=== PATIENT | male | born 1950 | race African-American/Black ===

== ENCOUNTER 2018-02-23 08:40 | Observation (INO) ==
[2018-02-23] MEDS ORDERED: Morphine Inj 4 MG/ML Vial IV.PUSH ONE ×3 (08:49→13:58)
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
[2018-02-23 09:14] LABS: Baso % (Auto) 1.1 % (0.0-2.0); Eos # (Auto) 0.2 th/mm3 (0.0-0.4); Hematocrit 39.1 % (39.0-51.0); Hemoglobin 13.3 gm/dL (13.0-17.0); Lymph # (Auto) 0.9 th/mm3 (1.0-4.8); Mean Corpuscular Hemoglobin 32.1 pg (27.0-34.0); Mean Corpuscular Volume 94.5 fL (80.0-100.0); Mean Platelet Volume 9.2 fL (7.0-11.0); Mono # (Auto) 0.5 th/mm3 (0.0-0.9); Mono % (Auto) 10.4 % (0.0-8.0); Neut # (Auto) 2.9 th/mm3 (1.8-7.7); Neut % (Auto) 63.5 % (16.0-70.0); Platelet Count 184 th/mm3 (150-450); Red Blood Count 4.13 mil/mm3 (4.50-5.90); Red Cell Distribution Width 14.8 % (11.6-17.2); White Blood Count 4.6 th/mm3 (4.0-11.0)
[2018-02-23 09:23] LABS: Activated Partial Thrombo Time 28.2 sec (23.4-31.7); Prothrombin Time 10.1 sec (9.8-11.6)
[2018-02-23 09:29] LABS: Albumin 3.5 g/dL (3.4-5.0); Anion Gap 6 meq/L (5-15); Aspartate Aminotransferase 23 U/L (15-37); Blood Urea Nitrogen 20 mg/dL (7-18); Calcium 8.5 mg/dL (8.5-10.1); Carbon Dioxide 25.8 meq/L (21.0-32.0); Chloride 107 meq/L (98-107); Glomerular Filtration Rate 66 mL/min (>89); Glucose,Random 105 mg/dL (74-106); Potassium 4.4 meq/L (3.5-5.1); Sodium 139 meq/L (136-145)
[2018-02-23 09:31] LABS: Alanine Aminotransferase 39 U/L (12-78)
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
[2018-02-23 09:37] LABS: Alkaline Phosphatase 56 U/L (45-117); Total Protein 7.7 g/dL (6.4-8.2)
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
[2018-02-23] MEDS ORDERED: Acetaminophen 325 MG Tablet PO PRN ×2 (15:25)
[2018-02-23] MEDS ORDERED: Bisacodyl 10 MG Supp RECTAL PRN (15:25)
[2018-02-23] MEDS ORDERED: Naloxone Inj 0.4 MG/ML Vial IV.PUSH PRN (15:25)
[2018-02-23] MEDS ORDERED: Dextrose 50% in Water 50 ML Vial IV.PUSH PRN (15:25)
[2018-02-23] MEDS ORDERED: Haloperidol Inj 5 MG/ML Ampul IV.PUSH PRN (16:13)
[2018-02-23] MEDS ORDERED: LORazepam 1 MG Tablet PO PRN (16:13)
[2018-02-23] MEDS ORDERED: Morphine Inj 4 MG/ML Vial IV.PUSH PRN (16:16)
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
[2018-02-23] MEDS: Heparin - SQ 10,000 UNITS/ML Vial SQ SCH (18:05)
[2018-02-23] MEDS: Gabapentin 100 MG Capsule PO SCH (18:05)
[2018-02-23] MEDS: Insulin NovoLOG Aspart Correctional Sugar Inj SQ SCH ×2 (18:05→20:56)
[2018-02-23] MEDS: Nortriptyline 25 MG Capsule PO SCH (20:56)
[2018-02-23] MEDS: Senna/Docusate Sodium 8.6/50 MG Tablet PO SCH (20:56)
[2018-02-24] MEDS: Heparin - SQ 10,000 UNITS/ML Vial SQ SCH ×2 (04:27→15:13)
[2018-02-24] MEDS: Senna/Docusate Sodium 8.6/50 MG Tablet PO SCH ×2 (08:33→21:17)
[2018-02-24] MEDS: Gabapentin 100 MG Capsule PO SCH ×3 (08:33→17:30)
[2018-02-24] MEDS: Insulin NovoLOG Aspart Correctional Sugar Inj SQ SCH ×4 (08:40→21:22)
[2018-02-24 09:27] LABS: Baso % (Auto) 0.9 % (0.0-2.0); Eos # (Auto) 0.2 th/mm3 (0.0-0.4); Eos % (Auto) 5.4 % (0.0-4.0); Hematocrit 41.4 % (39.0-51.0); Hemoglobin 13.6 gm/dL (13.0-17.0); Lymph % (Auto) 23.7 % (9.0-44.0); Mean Corpuscular HGB Conc 32.9 % (32.0-36.0); Mean Corpuscular Volume 94.1 fL (80.0-100.0); Mono # (Auto) 0.4 th/mm3 (0.0-0.9); Mono % (Auto) 9.9 % (0.0-8.0); Neut # (Auto) 2.5 th/mm3 (1.8-7.7); Neut % (Auto) 60.1 % (16.0-70.0); Platelet Count 179 th/mm3 (150-450); Red Cell Distribution Width 14.7 % (11.6-17.2); White Blood Count 4.2 th/mm3 (4.0-11.0)
[2018-02-24 09:55] LABS: Albumin 3.5 g/dL (3.4-5.0); Anion Gap 6 meq/L (5-15); Aspartate Aminotransferase 17 U/L (15-37); Calcium 8.5 mg/dL (8.5-10.1); Chloride 105 meq/L (98-107); Glomerular Filtration Rate 72 mL/min (>89); Glucose,Random 103 mg/dL (74-106); Potassium 4.3 meq/L (3.5-5.1); Sodium 137 meq/L (136-145)
[2018-02-24 10:01] LABS: Alanine Aminotransferase 34 U/L (12-78); Alkaline Phosphatase 56 U/L (45-117); Blood Urea Nitrogen 17 mg/dL (7-18); Total Protein 7.4 g/dL (6.4-8.2)
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
[2018-02-24] MEDS: amLODIPine 10 MG Tablet PO SCH (17:30)
[2018-02-24] MEDS: Atenolol 25 MG Tablet PO SCH (17:30)
[2018-02-24] MEDS: Pantoprazole Sodium 20 MG DR Tablet PO SCH (17:30)
[2018-02-24 20:10] VITALS: RESP 18
[2018-02-24] MEDS: Nortriptyline 25 MG Capsule PO SCH (21:17)
[2018-02-25] MEDS: Heparin - SQ 10,000 UNITS/ML Vial SQ SCH ×2 (03:44→15:03)
[2018-02-25 07:24] VITALS: TEMP 96.8
[2018-02-25] MEDS: Senna/Docusate Sodium 8.6/50 MG Tablet PO SCH (08:35)
[2018-02-25] MEDS: Gabapentin 100 MG Capsule PO SCH ×2 (08:36→12:07)
[2018-02-25] MEDS: Pantoprazole Sodium 20 MG DR Tablet PO SCH (08:36)
[2018-02-25] MEDS: amLODIPine 10 MG Tablet PO SCH (08:36)
[2018-02-25] MEDS: Atenolol 25 MG Tablet PO SCH (08:36)
[2018-02-25] MEDS: Insulin NovoLOG Aspart Correctional Sugar Inj SQ SCH ×2 (08:42→12:10)
[2018-02-25 11:24] VITALS: BP 118/85; PULSE 66; O2SAT 98
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
== END 2018-02-25 16:49 | disposition home health service (06) ==
LOC: NEDA 08:40 → NEPE 08:40 → NEPHCDU 16:30
PROVIDERS: ADMIT Internal Medicine; ATTEND Internal Medicine
DX: M46.96 Unspecified inflammatory spondylopathy, lumbar region; M54.5 Low back pain; M54.2 Cervicalgia; I10 Essential (primary) hypertension; V43.52XA Car driver injured in collision with other type car in traffic accident, initial encounter; M47.816 Spondylosis without myelopathy or radiculopathy, lumbar region; G89.29 Other chronic pain; F17.210 Nicotine dependence, cigarettes, uncomplicated; Y92.410 Unspecified street and highway as the place of occurrence of the external cause; E11.9 Type 2 diabetes mellitus without complications; M48.061 Spinal stenosis, lumbar region without neurogenic claudication; R40.2410 Glasgow coma scale score 13-15, unspecified time